=== PATIENT | male | born 1955 | race Caucasian/White ===

== ENCOUNTER 2023-01-23 09:40 | Day surgery (SDC) | payer MEDICARE ==
[2023-01-23] VITALS (18 sets, daily range): BP systolic 123–171; BP diastolic 77–97
[~2023-01-23] VITALS: Ht 175.3 cm; Wt 94.6 kg
[2023-01-23] MEDS ORDERED: ATOR10 PO (10:02)
[2023-01-23] MEDS ORDERED: AMLODIPINE BESYL5 MG PO (10:02)
[2023-01-23] MEDS ORDERED: IBUP200 PO (10:03)
--- NOTE | 2023-01-23 10:37 | NUR ---
01/23/23 Senait Landrum HISTORY, CHART, MEDICATIONS AND ALLERGIES REVIEWED BEFORE START OF PROCEDURE. PATIENT CONFIRMS NPO STATUS AND AGREES WITH SCHEDULED PROCEDURE. 3-LEAD EKG REVIEWED WITH PHYSICIAN PRIOR TO START OF PROCEDURE. MONITOR INTACT WITH CONTINUOUS PULSE OXIMETRY,CAPNOGRAPHY, 3-LEAD EKG, INTERMITTENT BP. SUPPLEMENTAL O2 TO BE TITRATED THROUGHOUT PROCEDURE TO MAINTAIN O2 SATURATION ABOVE 90%. PATIENT DETERMINED TO BE ASA APPROPRIATE FOR PROPOFOL SEDATION PRIOR TO START OF PROCEDURE BY .
--- NOTE | 2023-01-23 11:39 | NUR ---
Patient up to Ambulate independently. Gait steady. Discharge instructions reviewed with patient. Patient verbalizes understanding. Copy given to patient to take home, [facility] FAMILY. Patient States Post-Procedure ride home has been arranged. Discharged via wheelchair to private car for ride home.
== END 2023-01-23 11:39 | disposition home or self-care (01) ==
LOC: ORSCMMR 09:40 → ORD 10:30 → ORSCMMR 10:30
PROVIDERS: Internal Medicine Gastroenterology
PROC: 0DBN8ZX Excision of Sigmoid Colon, Via Natural or Artificial Opening Endoscopic, Diagnostic (ICD-10-PCS; principal; 2023-01-23 10:30)
DX: Z12.11 Encounter for screening for malignant neoplasm of colon (principal); D12.5 Benign neoplasm of sigmoid colon; K57.30 Diverticulosis of large intestine without perforation or abscess without bleeding; I10 Essential (primary) hypertension; E78.00 Pure hypercholesterolemia, unspecified; Z79.899 Other long term (current) drug therapy
CPT/HCPCS: 88305; J2704; J7120

== ENCOUNTER 2023-04-19 17:51 | Inpatient (IN) | payer OTHER, MEDICARE ==
[~2023-04-19] VITALS: Ht 180.3 cm; Wt 96.2 kg
[~2023-04-19 17:51] MED LIST: AMLODIPINE BESYL5 MG PO; ATOR10 PO; IBUP200 PO
[2023-04-20 01:06] VITALS: BP 140/80
[2023-04-20 04:15] VITALS: BP 126/77
[2023-04-20 04:59] LABS: Hematocrit 37.5 % (37.0-53.0); Hemoglobin 13.2 g/dL (13.5-17.5); Mean Corpuscular HGB 30.8 pg (26.0-34.0); Mean Corpuscular HGB Conc 35.2 g/dL (31.5-36.5); Mean Corpuscular Volume 88 fL (80-100); Mean Platelet Volume 9.5 fL (9.1-12.4); Platelet Count 272 K/mm3 (150-400); RDW Coefficient Variation 11.9 % (11.7-14.2); RDW Standard Deviation 38.4 fL (35.1-46.3); Red Blood Cell Count 4.28 M/mm3 (4.30-5.90); White Blood Cell Count 9.84 K/mm3 (4.00-11.30)
[2023-04-20 05:21] LABS: International Normalized Ratio 0.98; Prothrombin Time Results 10.3 Sec (9.7-11.5)
--- NOTE | 2023-04-20 05:44 | NUR ---
SHIFT SUMMARY AOX4. ADMITTED FOR R TIB/FIB FX. RLE SPLINTED, PT DENIES N/T, HAS SENSATION TO LIGHT TOUCH ON R TOES, CAP REFILL <3 SEC, WARM TOES. REPORTS MINIMAL 3/10 PAIN, DENIES NEED FOR MEDICATION. DENIES N/V. VSS. CALL LIGHT IN REACH, WILL MONITOR.
[2023-04-20 06:09] LABS: Albumin, Blood 3.4 g/dL (3.4-5.0); Albumin/Globulin Ratio 1.1 (0.8-1.8); Bilirubin, Total 0.6 mg/dL (0.1-1.0); Bun/Creatinine Ratio 21.5 (12.0-20.0); Calcium, Blood 8.6 mg/dL (8.5-10.1); Creatinine, Blood 1.21 mg/dL (0.60-1.20); Globulin, Blood 3.1 g/dL (2.2-4.0); Potassium, Blood 4.3 mmol/L (3.5-5.5); Total Protein, Blood 6.5 g/dL (6.4-8.2)
[2023-04-20 07:41] VITALS: BP 138/80
[2023-04-20 15:35] VITALS: BP 150/80
--- NOTE | 2023-04-20 19:08 | NUR ---
SHIFT SUMMARY PT WILL BE MADE NPO AT MIDNIGHT FOR EXTERNAL FIXATION OF RLE W/DR FLANAGAN. PT HAS DENIES PAIN T/O SHIFT. RLE ELEVATED ON PILLOW. RE-START FLUIDS AT MIDNIGHT. PT DID ATTEMPT TO STAND THIS SHIFT WITHOUT ASKING FOR ASSISTANCE, PT RE-EDUCATED ON CALLING FOR ASSISTANCE AND NWB STATUS ON RLE. PT VERBALIZED UNDERSTANDING.
[2023-04-20 19:39] VITALS: BP 143/80
[2023-04-21] VITALS (16 sets, daily range): BP systolic 106–156; BP diastolic 65–89
[2023-04-21 05:46] LABS: BASOPHILS ABSOLUTE AUTO 0.02 K/mm3 (0.00-0.23); BASOPHILS PERCENT AUTO 0 % (0-2); EOSINOPHILS PERCENT AUTO 0 % (0-6); Hematocrit 37.9 % (37.0-53.0); Hemoglobin 13.1 g/dL (13.5-17.5); IMMATURE GRAN ABSOLUTE AUTO 0.02 K/mm3 (0.00-0.10); IMMATURE GRAN PERCENT AUTO 0 % (0-1); LYMPHOCYTES ABSOLUTE AUTO 1.63 K/mm3 (0.84-5.20); LYMPHOCYTES PERCENT AUTO 18 % (21-46); MONOCYTES ABSOLUTE AUTO 0.84 K/mm3 (0.16-1.47); MONOCYTES PERCENT AUTO 9 % (4-13); Mean Corpuscular HGB 30.6 pg (26.0-34.0); Mean Corpuscular HGB Conc 34.6 g/dL (31.5-36.5); Mean Corpuscular Volume 89 fL (80-100); Mean Platelet Volume 9.5 fL (9.1-12.4); NEUTROPHILS ABSOLUTE AUTO 6.76 K/mm3 (1.96-9.15); NEUTROPHILS PERCENT AUTO 73 % (41-73); Platelet Count 243 K/mm3 (150-400); RDW Coefficient Variation 11.8 % (11.7-14.2); RDW Standard Deviation 37.7 fL (35.1-46.3); Red Blood Cell Count 4.28 M/mm3 (4.30-5.90); White Blood Cell Count 9.27 K/mm3 (4.00-11.30)
--- NOTE | 2023-04-21 06:40 | NUR ---
SHIFT SUMMARY AOX4. HAS BEEN NPO SINCE MIDNIGHT, PLAN FOR SURGERY TODAY. REPORTS PAIN 3-09/14, MEDICATED 1x c 800MG IBPROPHEN & STATED PAIN DECREASED TO 04/16. DENIES N/T IN RLE. CAP REFILL <3 SEC, WARM TOES. RLE IN SPLINT. VSS. BEDREST @THIS TIME. WILL MONITOR.
--- NOTE | 2023-04-21 10:50 | NUR ---
PT TO DAY SURGERY FOR RIGHT FOOT EXTERNAL FIXATION PLACEMENT FROM ROOM 212. VSS. PT HAS BEEN NPO SINCE 2099. PLAN OF CARE DISCUSSED WITH PT.
--- NOTE | 2023-04-21 11:04 | NUR ---
PT TO DAY SURGERY WITH 20G IV IN LEFT AC, FLUSHES WELL.
--- NOTE | 2023-04-21 14:27 | NUR ---
PT ARRIVED BACK TO THE ROOM FROM PACU AT APPROXIMATELY 1420. PT DENIES PAIN. HE REPORTS NUMBNESS TO THE RLE, HE IS UNABLE TO WIGGLE HIS TOES, PER MAINSPRING FORMER BRACE END PT WAS GIVEN A NERVE BLOCK. CAP REFIL WNL, UNABLE TO ASSESS PULSES R/T SPLINT PLACEMENT. EXTERNAL FIXATION IN PLACE. PT IS ALERT AND ORIENTED AND RESTING IN BED AT THIS TIME.
--- NOTE | 2023-04-21 19:09 | NUR ---
SHIFT SUMMARY PT IS POD#0 FROM RLE EXTERNAL FIXATION WITH DR. FLANAGAN. PT HAS DENIED SENSATION POST-OP AND IS UNABLE TO MOVE HIS TOES, PER EXCEL DEVELOPER PT HAD A NERVE BLOCK DURING SURGERY. CAP REFIL WNL, TOES ARE PINK AND WARM, BOWL ATTENDANT KAYODE NOTIFIED. PT IS TOLERATING PO. HE HAS VOIDED. POST-OP NAUSEA HAS RESOLVED. BEDSIDE REPORT GIVEN TO EMMY PATHAK.
[2023-04-22 02:47] VITALS: BP 133/78
[2023-04-22 04:53] LABS: BASOPHILS ABSOLUTE AUTO 0.01 K/mm3 (0.00-0.23); BASOPHILS PERCENT AUTO 0 % (0-2); EOSINOPHILS PERCENT AUTO 0 % (0-6); Hematocrit 35.9 % (37.0-53.0); Hemoglobin 12.9 g/dL (13.5-17.5); IMMATURE GRAN ABSOLUTE AUTO 0.04 K/mm3 (0.00-0.10); IMMATURE GRAN PERCENT AUTO 0 % (0-1); LYMPHOCYTES PERCENT AUTO 5 % (21-46); MONOCYTES ABSOLUTE AUTO 0.75 K/mm3 (0.16-1.47); MONOCYTES PERCENT AUTO 6 % (4-13); Mean Corpuscular HGB 31.4 pg (26.0-34.0); Mean Corpuscular HGB Conc 35.9 g/dL (31.5-36.5); Mean Corpuscular Volume 87 fL (80-100); Mean Platelet Volume 9.4 fL (9.1-12.4); NEUTROPHILS ABSOLUTE AUTO 12.06 K/mm3 (1.96-9.15); NEUTROPHILS PERCENT AUTO 90 % (41-73); Platelet Count 253 K/mm3 (150-400); RDW Coefficient Variation 11.5 % (11.7-14.2); RDW Standard Deviation 36.8 fL (35.1-46.3); Red Blood Cell Count 4.11 M/mm3 (4.30-5.90); White Blood Cell Count 13.46 K/mm3 (4.00-11.30)
[2023-04-22 05:23] LABS: Bun/Creatinine Ratio 22.3 (12.0-20.0); Calcium, Blood 8.6 mg/dL (8.5-10.1); Creatinine, Blood 1.03 mg/dL (0.60-1.20); Potassium, Blood 4.4 mmol/L (3.5-5.5)
--- NOTE | 2023-04-22 05:56 | NUR ---
SHIFT SUMMARY AOX4. POD 1-EXTERNAL FIXATION RLE. THIS AM PT NO LONGER FEELS NUMBNESS IN TOES. ABLE TO WIGGLE TOES & FEEL TOUCH. WARM, CAP REFILL <3 SEC, UNABLE TO ASSESS PEDAL PULSE. BANDAGED c JELLY WRAP, DRESSING C/D/I-NO DRAINAGE NOTED. DENIES ANY PAIN OR N/V. PT REFUSED HS MEDS & STATED "THEY DONT DO ANYTHING ANYWAYS." CALL LIGHT IN REACH, WILL MONITOR.
[2023-04-22 07:50] VITALS: BP 134/87
[2023-04-22] MEDS ORDERED: Norco 5-325 Ta1 EACH PO (10:13)
--- NOTE | 2023-04-22 12:11 | NUR ---
SHIFT SUMMARY PT A&OX4, VSS/RA, JENI PO, VOIDING, AMB NWB, DENIES PAIN/NEED FOR MED, PASSED PHYSICAL THERAPY EVAL, DR FLANAGAN OK'D PT FOR DC ONCE PASSING PTHERAPY, DR ROLLINS EFM IN TO SEE PT - OK'D PT FOR DC WITH DR BISHOP MEDRANO AND FU GUIDELINES. DC INS PROVIDED TO PT AND ; UNDERSTOOD DC INS INCLUDING NO IBUPROFEN, NORCO SCRIPT, FU WITH PCP RE EKG RESULTS PREOP, FU WITH DR FLANAGAN 2 DAYS, RLE NWB-STRICT/FWW, MAINTAIN CDI. LEFT FLOOR VIA WC WITH QUALITATIVE FIELD PROJECT MANAGER TO GO HOME WITH , WITH ALL PERSONAL POSSESSIONS INCLUDING DC PACKET AND 1 NARC SCRIPT.
== END 2023-04-22 11:43 | disposition home or self-care (01) | DRG 494 ==
LOC: ER 17:51 → MEDS 23:48 → SURS 23:48 → EDBEDREQDT 04-20 00:09 → EDBEDREQ 04-20 00:09 → SURS 04-20 00:35
PROVIDERS: Family Medicine; Internal Medicine; Podiatrist Foot & Ankle Surgery; ADMIT Internal Medicine
PROC: 0SSF05Z Reposition Right Ankle Joint with External Fixation Device, Open Approach (ICD-10-PCS; principal; 2023-04-21 11:30)
DX: S82.871A Displaced pilon fracture of right tibia, initial encounter for closed fracture (principal); I10 Essential (primary) hypertension; E78.00 Pure hypercholesterolemia, unspecified; N40.0 Benign prostatic hyperplasia without lower urinary tract symptoms; W01.0XXA Fall on same level from slipping, tripping and stumbling without subsequent striking against object, initial encounter; Z28.21 Immunization not carried out because of patient refusal
CPT/HCPCS: 36415; 73590; 73610; 73700; 80048; 80053; 83880; 85025; 85027; 85610; 93005; 93010; 94760; 97116; 97163; 97530; 99285-25; A9270; C1713; J0171; J0690; J1100; J1170; J2001; J2250; J2405; J2704; J3010; J7120

== ENCOUNTER 2023-04-30 08:41 | Day surgery (SDC) | payer MEDICARE ==
[~2023-04-30] VITALS: Ht 180.3 cm; Wt 87.6 kg
[~2023-04-30 08:41] MED LIST changes: +Norco 5-325 Ta1 EACH PO
--- NOTE | 2023-04-30 10:32 | NUR ---
04/30/23 Pawel2 [place] PER DR FLANAGAN, WILL PREP OPSITE IN OR, DO NOT LONI OR SHAVE IN PRE-OP.
--- NOTE | 2023-04-30 14:39 | NUR ---
04/30/23 Mitchell9 Luis Alfredo Mares FENTANYL 25MCG GIVEN AT 1435 FOR RIGHT FOOT PAIN AT 09/14.
[2023-04-30 14:45] VITALS: BP 152/89
== END 2023-04-30 16:12 | disposition home or self-care (01) ==
LOC: ORSCSDS 08:41
PROVIDERS: Podiatrist Foot & Ankle Surgery
PROC: 0QSJ04Z Reposition Right Fibula with Internal Fixation Device, Open Approach (ICD-10-PCS; principal; 2023-04-30 10:30)
PROC: 0QP104Z Removal of Internal Fixation Device from Sacrum, Open Approach (ICD-10-PCS; principal; 2023-04-30 10:30)
PROC: 0QSG04Z Reposition Right Tibia with Internal Fixation Device, Open Approach (ICD-10-PCS; principal; 2023-04-30 10:30)
DX: S82.871A Displaced pilon fracture of right tibia, initial encounter for closed fracture (principal); S82.841A Displaced bimalleolar fracture of right lower leg, initial encounter for closed fracture; I10 Essential (primary) hypertension; E78.5 Hyperlipidemia, unspecified; Z79.899 Other long term (current) drug therapy
CPT/HCPCS: 73610; A9270; C1713; C1769; J0171; J0690; J1100; J1885; J2250; J2405; J2704; J2795; J3010; J7120